=== PATIENT | female | born 1945 | race Caucasian/White ===

== ENCOUNTER 2022-05-05 07:30 | Outpatient (RCR) | payer OTHER, SELFPAY ==
--- NOTE | 2022-04-14 11:56 | OT.OPOE ---
OT Outpatient Ortho Eval OT Outpatient Ortho Eval Start: 04/13/22 07:27 Freq: Status: Active Protocol: Document 04/13/22 14:01 AMB (Rec: 04/13/22 14:02 AMB [id number]) E-Signed By Velia Joy, OTR/L, CLT, POWER SCREWDRIVER OPERATOR Ortho Goals Ortho Goals Goals 1. Pt will be independent and compliant with HEP in order to promote improved CMC stability and resume full, pain-free use of hand. 3 weeks 2. Pt will demonstrate good knowledge of joint protection techniques and adaptive equipment to promote joint stability / alignment of the CMC joint to decrease risk for deformity and further injury. 6 weeks 3. Pt will demonstrate pain- free sub prior and pinch strength comparable to the RUE in order to improve prehension, grasp, and lifting ability needed to complete self-care, cooking, and cleaning tasks. 8 weeks. OT Outpatient Treatment Plan Ortho Plan Treatment Plan Evaluation,Edema Control, Iontophoresis,Joint Mobilization,Manual Therapy, Splinting,Ultrasound, Therapeutic Exercise, Therapeutic Activities Other Treatment Plan Continue OT 1-2x week x 8 weeks Clinical Certification # [id number] Patient's H Certification Certification I Certify That: Therapy Services Provided, Therapy Plan Established, Therapy Plan Reviewed
== END 2022-12-10 16:01 | disposition home or self-care (01) ==
PROVIDERS: PCP Family Medicine; Visit Provider Physician Assistant Surgical
DX: S62.001A Unspecified fracture of navicular [scaphoid] bone of right wrist, initial encounter for closed fracture (principal); Z51.89 Encounter for other specified aftercare
CPT/HCPCS: 97110; 97165; 97530; 97535; X5282